=== PATIENT | female | born 1970 | race Caucasian/White ===

== ENCOUNTER 2020-12-02 06:48 | Emergency (ER) | payer MEDICAID ==
[~2020-12-02] VITALS: Ht 160 cm; Wt 82.0 kg
[~2020-12-02 06:48] MED LIST: T3 PO
[2020-12-02] MEDS ORDERED: CEPHALEXIN 250MG CAPSULE PO ONE (07:15)
[2020-12-02] MEDS ORDERED: IBUPROFEN 800MG TABLET PO ONE (07:15)
[2020-12-02] MEDS ORDERED: IBUP-2030 MT (08:57)
[2020-12-02] MEDS ORDERED: TRAM50TA MT (08:57)
[2020-12-02] MEDS ORDERED: CEPH500T MT (08:57)
[2020-12-02 09:20] VITALS: BP 121/78
== END 2020-12-02 09:28 | disposition home or self-care (01) ==
LOC: ER 06:59
DX: L60.0 Ingrowing nail (principal); J45.909 Unspecified asthma, uncomplicated; Z98.890 Other specified postprocedural states
CPT/HCPCS: 73660; 99283

== ENCOUNTER 2020-12-05 05:42 | Emergency (ER) | payer MEDICAID ==
[~2020-12-05] VITALS: Ht 160 cm; Wt 82.0 kg
[~2020-12-05 05:42] MED LIST changes: +CEPH500T MT; +IBUP-2030 MT; +TRAM50TA MT
[2020-12-05] MEDS: BUPIVACAINE HCL/PF 0.5% (5MG/ML) 10ML INFIL ONE (08:56)
[2020-12-05 09:45] VITALS: BP 119/87
== END 2020-12-05 09:46 | disposition home or self-care (01) ==
LOC: ER 05:42
DX: S99.821A Other specified injuries of right foot, initial encounter (principal); X58.XXXA Exposure to other specified factors, initial encounter; Y93.89 Activity, other specified; Y92.89 Other specified places as the place of occurrence of the external cause; Y99.8 Other external cause status
CPT/HCPCS: 99283; J3490; 99282

== ENCOUNTER 2021-08-18 18:46 | Inpatient (IN) | payer MEDICAID ==
[~2021-08-18] VITALS: Ht 160 cm; Wt 85.3 kg
[2021-08-18] MEDS ORDERED: MAGNESIUM/ALUMINUM HYDROXIDE/SIMETHICONE 30ML UDC PO STA (20:20)
[2021-08-18] MEDS ORDERED: FAMOTIDINE 20MG TABLET PO ONE (20:30)
[2021-08-18] MEDS ORDERED: ONDANSETRON HCL 4MG TABLET PO ONE (20:30)
[2021-08-18] MEDS ORDERED: SODIUM CHLORIDE 0.9% 1,000 ML IV ONE (20:45)
[2021-08-18] MEDS ORDERED: KETOROLAC 15MG/ML VIAL IV ONE (20:45)
[2021-08-18] MEDS ORDERED: ONDANSETRON HCL 4MG/2ML INJ IV ONE (20:45)
[2021-08-18 21:07] LABS: HCG SCREEN NEGATIVE
[2021-08-18 21:09] LABS: BASOPHILS % 0.5 % (0.0-2.0); EOSINOPHILS % 6.6 % (0.0-5.0); HEMATOCRIT. 38.3 % (36.0-48.0); HEMOGLOBIN. 12.7 g/dL (12.0-16.0); LYMPHOCYTES % 32.7 % (20.0-50.0); MEAN CORPUSCULAR HEMOGLOBIN 26.2 pg (28.0-32.0); MEAN CORPUSCULAR VOLUME 79.1 fL (81.0-99.0); MEAN PLATELET VOLUME 8.2 fl (7.4-10.4); MONOCYTES % 7.4 % (2.0-8.0); NEUTROPHILS % 52.8 % (40.0-76.0); PLATELET 303 x1000/uL (130-400); RED BLOOD CELL COUNT 4.84 mill/uL (4.2-5.4)
[2021-08-18 21:12] LABS: CHLORIDE 107 mEq/L (98-107)
[2021-08-18 23:40] LABS: CLARITY URINE CLOUDY (CLEAR); COLOR URINE YELLOW (YELLOW); KETONES URINE TRACE (NEGATIVE); LEUKOCYTE ESTERASE URINE 3+ (NEGATIVE); NITRITE URINE POSITIVE (NEGATIVE); OCCULT BLOOD URINE NEGATIVE (NEGATIVE); PH URINE 6.5 (4.5-8.0); PROTEIN URINE TRACE (NEGATIVE); SPECIFIC GRAVITY URINE 1.025 (1.005-1.030)
[2021-08-19] MEDS ORDERED: CEFTRIAXONE 1 G PREMIX 50 ML IV ONE
[2021-08-19 04:00] VITALS: BP 131/69
[2021-08-19] MEDS ORDERED: FENO145T25 PO (04:36)
[2021-08-19] MEDS ORDERED: ONDANSETRON HCL 4MG/2ML INJ IV PRN (05:00)
[2021-08-19] MEDS ORDERED: CEFTRIAXONE 1 G PREMIX 50 ML IV SCH (05:00)
[2021-08-19] MEDS ORDERED: ACETAMINOPHEN 325MG TABLET PO PRN (05:00)
[2021-08-19 05:11] VITALS: BP 131/69
[2021-08-19] MEDS ORDERED: ALBU90AE IH (05:28)
[2021-08-19] MEDS: HYDROCODONE/ACETAMINOPHEN 5/325MG TABLET PO PRN ×4 (05:39→21:31)
[2021-08-19] MEDS: SODIUM CHLORIDE 0.9% 1,000 ML IV SCH ×3 (06:05→21:30)
[2021-08-19 08:00] VITALS: BP 124/88
[2021-08-19] MEDS: ENOXAPARIN 40MG/0.4ML SYR SUBCUT SCH (10:01)
[2021-08-19 12:00] VITALS: BP 137/77
[2021-08-19 16:00] VITALS: BP 120/63
[2021-08-19 20:00] VITALS: BP 121/70
[2021-08-19] MEDS ORDERED: NALOXONE HCL 0.4MG/ML VIAL IV PRN (22:45)
[2021-08-20] VITALS: BP 110/64
[2021-08-20] MEDS: CEFTRIAXONE 1,000 MG in DEXTROSE 5% WATER 50 ML IV SCH (00:43)
[2021-08-20 04:00] VITALS: BP 99/37
[2021-08-20 08:00] VITALS: BP 126/75
[2021-08-20] MEDS: ENOXAPARIN 40MG/0.4ML SYR SUBCUT SCH (08:42)
[2021-08-20 12:00] VITALS: BP 126/98
[2021-08-20] MEDS: HYDROCODONE/ACETAMINOPHEN 5/325MG TABLET PO PRN ×2 (14:40→21:12)
[2021-08-20 16:00] VITALS: BP 132/78
[2021-08-20] MEDS: SODIUM CHLORIDE 0.9% 1,000 ML IV SCH (22:00)
[2021-08-21] VITALS: BP 119/67
[2021-08-21] MEDS: CEFTRIAXONE 1,000 MG in DEXTROSE 5% WATER 50 ML IV SCH (00:11)
[2021-08-21 04:00] VITALS: BP 116/68
[2021-08-21 08:00] VITALS: BP 139/77
[2021-08-21] MEDS: ENOXAPARIN 40MG/0.4ML SYR SUBCUT SCH (08:25)
[2021-08-21] MEDS: SODIUM CHLORIDE 0.9% 1,000 ML IV SCH (10:56)
[2021-08-21 12:00] VITALS: BP 144/80
[2021-08-21 16:00] VITALS: BP 140/80
[2021-08-21 20:00] VITALS: BP 127/70
[2021-08-21] MEDS ORDERED: KETOROLAC 15MG/ML VIAL IV SCH (21:00)
[2021-08-21] MEDS ORDERED: LEVOFLOXACIN 500MG PREMIX 100 ML IV NR (22:30)
[2021-08-22] VITALS: BP 103/77
[2021-08-22] MEDS: KETOROLAC 30MG/ML VIAL IV SCH ×3 (00:03→09:00)
[2021-08-22] MEDS: CEFTRIAXONE 1,000 MG in DEXTROSE 5% WATER 50 ML IV SCH (01:09)
[2021-08-22] MEDS: SODIUM CHLORIDE 0.9% 1,000 ML IV SCH (01:16)
[2021-08-22 04:00] VITALS: BP 107/56
[2021-08-22 06:38] LABS: BASOPHILS % 0.6 % (0.0-2.0); EOSINOPHILS % 6.3 % (0.0-5.0); HEMATOCRIT. 35.8 % (36.0-48.0); HEMOGLOBIN. 11.7 g/dL (12.0-16.0); LYMPHOCYTES % 33.2 % (20.0-50.0); MEAN CORPUSCULAR VOLUME 79.6 fL (81.0-99.0); MEAN PLATELET VOLUME 8.4 fl (7.4-10.4); MONOCYTES % 6.9 % (2.0-8.0); PLATELET 268 x1000/uL (130-400); RED CELL DISTRIBUTION WIDTH 13.7 % (11.6-14.6)
[2021-08-22 08:00] VITALS: BP 129/66
[2021-08-22 09:30] LABS: CHLORIDE 110 mEq/L (98-107)
[2021-08-22] MEDS: ENOXAPARIN 40MG/0.4ML SYR SUBCUT SCH (10:05)
[2021-08-22 10:35] VITALS: BP 129/66
== END 2021-08-22 11:48 | disposition home or self-care (01) | DRG 465 ==
LOC: ER 18:46 → 6EST 23:58 → ENRESERV 08-19 03:16
PROVIDERS: ADMIT Internal Medicine; ATTEND Internal Medicine
DX: N20.2 Calculus of kidney with calculus of ureter (principal); E66.9 Obesity, unspecified; N39.0 Urinary tract infection, site not specified; B96.20 Unspecified Escherichia coli [E. coli] as the cause of diseases classified elsewhere; E78.00 Pure hypercholesterolemia, unspecified; J45.909 Unspecified asthma, uncomplicated; Z68.33 Body mass index [BMI] 33.0-33.9, adult; Z87.442 Personal history of urinary calculi; Z98.891 History of uterine scar from previous surgery; Z71.3 Dietary counseling and surveillance
CPT/HCPCS: 36415; 71045; 74176; 80048; 80053; 81003; 83605; 84484; 84703; 85025; 87186; 93005; 99285; J0696; J1650; J1885; J1956; J2405; J7030; J7060; Q0162

== ENCOUNTER 2022-04-04 12:41 | Emergency (ER) | payer MEDICAID ==
[~2022-04-04] VITALS: Ht 160 cm; Wt 87.0 kg
[~2022-04-04 12:41] MED LIST changes: +ALBU90AE IH; +FENO145T25 PO
[2022-04-04] MEDS ORDERED: SODIUM CHLORIDE 0.9% 1,000 ML IV ONE ×2 (13:15→14:00)
[2022-04-04] MEDS ORDERED: ASPIRIN 81MG TABLET PO ONE (14:00)
[2022-04-04 14:16] LABS: BASOPHILS % 0.5 % (0.0-2.0); EOSINOPHILS % 3.5 % (0.0-5.0); HEMATOCRIT. 37.9 % (36.0-48.0); HEMOGLOBIN. 12.5 g/dL (12.0-16.0); LYMPHOCYTES % 31.1 % (20.0-50.0); MEAN CORPUSCULAR HEMOGLOBIN 25.7 pg (28.0-32.0); MEAN CORPUSCULAR VOLUME 77.6 fL (81.0-99.0); MEAN PLATELET VOLUME 8.4 fl (7.4-10.4); NEUTROPHILS % 58.9 % (40.0-76.0); PLATELET 274 x1000/uL (130-400); RED BLOOD CELL COUNT 4.88 mill/uL (4.2-5.4); RED CELL DISTRIBUTION WIDTH 13.7 % (11.6-14.6)
[2022-04-04 14:19] LABS: CHLORIDE 105 mEq/L (98-107)
[2022-04-04 14:29] LABS: HCG SCREEN NEGATIVE
[2022-04-04 15:37] LABS: CLARITY URINE CLEAR (CLEAR); COLOR URINE YELLOW (YELLOW); KETONES URINE TRACE (NEGATIVE); LEUKOCYTE ESTERASE URINE 1+ (NEGATIVE); NITRITE URINE NEGATIVE (NEGATIVE); OCCULT BLOOD URINE NEGATIVE (NEGATIVE); PH URINE 5.5 (4.5-8.0); PROTEIN URINE NEGATIVE (NEGATIVE); SPECIFIC GRAVITY URINE 1.026 (1.005-1.030)
[2022-04-04 17:44] VITALS: BP 131/76
== END 2022-04-04 17:51 | disposition home or self-care (01) ==
LOC: ER 12:41
DX: R55 Syncope and collapse (principal); R42 Dizziness and giddiness; J45.909 Unspecified asthma, uncomplicated; Z98.890 Other specified postprocedural states; Z79.899 Other long term (current) drug therapy
CPT/HCPCS: 36415; 70450; 71045; 80053; 81003; 81025; 82962; 84484; 84703; 85025; 85379; 93005; 96360; 96361; 99285; J7030; Z7610

== ENCOUNTER 2022-12-16 06:51 | Emergency (ER) | payer MEDICAID ==
[~2022-12-16] VITALS: Ht 160 cm; Wt 83.0 kg
[2022-12-16 07:06] VITALS: O2SAT 100
[2022-12-16] MEDS ORDERED: ONDANSETRON HCL 4MG/2ML INJ IV STA (07:56)
[2022-12-16] MEDS ORDERED: SODIUM CHLORIDE 0.9% 1,000 ML IV ONE (08:00)
[2022-12-16] MEDS ORDERED: DIPHENHYDRAMINE 50MG/ML VIAL IV ONE (08:00)
[2022-12-16 08:31] LABS: CLARITY URINE CLOUDY (CLEAR); COLOR URINE YELLOW (YELLOW); GLUCOSE URINE NEGATIVE (NEGATIVE); KETONES URINE NEGATIVE (NEGATIVE); LEUKOCYTE ESTERASE URINE 2+ (NEGATIVE); NITRITE URINE NEGATIVE (NEGATIVE); OCCULT BLOOD URINE NEGATIVE (NEGATIVE); PH URINE 5.5 (4.5-8.0); PROTEIN URINE NEGATIVE (NEGATIVE); SPECIFIC GRAVITY URINE 1.018 (1.005-1.030); UROBILINOGEN URINE 0.2 E.U./dL (0.2-1.0)
[2022-12-16 09:00] LABS: BACTERIA URINE 1+; SQUAMOUS EPITHELIAL CELL URINE 1+ /lpf (RARE/1+)
[2022-12-16 09:01] LABS: YEAST URINE NONE SEEN
[2022-12-16 09:05] LABS: BASOPHILS % 0.5 % (0.0-2.0); DIFFERENTIAL COMMENT 0; EOSINOPHILS % 2.4 % (0.0-5.0); HEMOGLOBIN. 12.3 g/dL (12.0-16.0); LYMPHOCYTES % 26.7 % (20.0-50.0); MEAN CORPUSCULAR HEMOGLOBIN 25.6 pg (28.0-32.0); MEAN CORPUSCULAR HGB CONC 33.2 g/dL (31.0-37.0); MEAN CORPUSCULAR VOLUME 77.2 fL (81.0-99.0); MEAN PLATELET VOLUME 8.7 fl (7.4-10.4); MONOCYTES % 5.7 % (2.0-8.0); NEUTROPHILS % 64.7 % (40.0-76.0); PLATELET 272 x1000/uL (130-400); RED BLOOD CELL COUNT 4.79 mill/uL (4.2-5.4); RED CELL DISTRIBUTION WIDTH 13.9 % (11.6-14.6)
[2022-12-16 09:14] LABS: PARTIAL THROMBOPLASTIN TIME 23.6 sec (23.4-31.0); PROTHROMBIN TIME 10.4 sec (9.6-11.0)
[2022-12-16 09:18] LABS: CHLORIDE 109 mEq/L (98-107); INDEX HEMOLYSI 1 (1-3); INDEX ICTERIC 1 (1-4); INDEX LIPEMIC 1 (1-3); POTASSIUM 3.8 mEq/L (3.5-5.1); SODIUM 140 mEq/L (136-145)
[2022-12-16 09:29] LABS: ALANINE AMINOTRANSFERASE 39 IU/L (13-61); ASPARTATE AMINOTRANSFERASE 19 IU/L (15-37); BILIRUBIN TOTAL 0.5 mg/dL (0.1-1.0); CALCIUM 9.1 mg/dL (8.5-10.1); CARBON DIOXIDE 27 mEq/L (21-32); CREATININE 0.6 mg/dL (0.6-1.3); GLUCOSE 141 mg/dL (70-105); PROTEIN TOTAL 7.9 g/dL (6.0-8.3); TROPONIN I HIGH SENSITIVITY 6 ng/L (<54); UREA NITROGEN BLOOD 18 mg/dL (7-21)
[2022-12-16] MEDS ORDERED: MECL-299 MT (10:47)
[2022-12-16] MEDS ORDERED: NITR-87 MT (10:47)
[2022-12-16 11:02] VITALS: BP 122/73; PULSE 75; RESP 18; TEMP 98.4
[2022-12-16 11:34] LABS: HCG SCREEN NEGATIVE
== END 2022-12-16 11:04 | disposition home or self-care (01) ==
LOC: ER 06:51
DX: N39.0 Urinary tract infection, site not specified (principal); R42 Dizziness and giddiness; E78.00 Pure hypercholesterolemia, unspecified; J45.909 Unspecified asthma, uncomplicated; E11.9 Type 2 diabetes mellitus without complications
CPT/HCPCS: 80053; 81003; 84703; 85025; 85610; 85730; 84484; 36415; 71045; 70450; 93005; 96361; 96374; 96375; 99285; J1200; J2405; J7030; Z7610

== ENCOUNTER 2023-11-21 00:02 | Emergency (ER) | payer MEDICAID ==
[~2023-11-21] VITALS: Ht 160 cm; Wt 84.0 kg
[~2023-11-21 00:02] MED LIST changes: +MECL-299 MT; +NITR-87 MT
[2023-11-21 00:26] VITALS: O2SAT 99
[2023-11-21 00:43] VITALS: TEMP 98; O2SAT 97
[2023-11-21] MEDS ORDERED: KETOROLAC 30MG/ML VIAL IV STA (01:12)
[2023-11-21] MEDS ORDERED: ONDANSETRON HCL 4MG/2ML INJ IV STA (01:12)
[2023-11-21] MEDS ORDERED: MAGNESIUM/ALUMINUM HYDROXIDE/SIMETHICONE 30ML UDC PO STA (01:12)
[2023-11-21] MEDS ORDERED: FAMOTIDINE 20MG/2ML VIAL IV ONE (01:15)
[2023-11-21 01:31] LABS: BASOPHILS % 0.5 % (0.0-2.0); DIFFERENTIAL COMMENT 0; EOSINOPHILS % 3.1 % (0.0-5.0); HEMATOCRIT. 37.2 % (36.0-48.0); HEMOGLOBIN. 12.4 g/dL (12.0-16.0); LYMPHOCYTES % 20.9 % (20.0-50.0); MEAN CORPUSCULAR HEMOGLOBIN 26.1 pg (28.0-32.0); MEAN CORPUSCULAR HGB CONC 33.3 g/dL (31.0-37.0); MEAN CORPUSCULAR VOLUME 78.2 fL (81.0-99.0); MEAN PLATELET VOLUME 8.5 fl (7.4-10.4); MONOCYTES % 7.2 % (2.0-8.0); NEUTROPHILS % 68.3 % (40.0-76.0); PLATELET 258 x1000/uL (130-400); RED BLOOD CELL COUNT 4.75 mill/uL (4.2-5.4); RED CELL DISTRIBUTION WIDTH 14.2 % (11.6-14.6); WHITE BLOOD COUNT 10.3 x1000/uL (4.5-11.0)
[2023-11-21 01:35] LABS: CHLORIDE 107 mEq/L (98-107); POTASSIUM 3.6 mEq/L (3.5-5.1); SODIUM 141 mEq/L (136-145)
[2023-11-21 01:36] LABS: CALCIUM 9.8 mg/dL (8.7-10.4); CARBON DIOXIDE 26 mEq/L (21-32)
[2023-11-21 01:41] LABS: CREATININE 0.8 mg/dL (0.6-1.0); GLUCOSE 127 mg/dL (70-105); UREA NITROGEN BLOOD 15 mg/dL (9-23)
[2023-11-21 01:43] LABS: ALANINE AMINOTRANSFERASE 27 IU/L (10-49); ALBUMIN 4.6 g/dL (3.2-4.8); ASPARTATE AMINOTRANSFERASE 23 IU/L (<34)
[2023-11-21 01:44] LABS: BILIRUBIN TOTAL 0.5 mg/dL (0.1-1.0); PROTEIN TOTAL 7.5 g/dL (6.0-8.3)
[2023-11-21] MEDS: MAGNESIUM/ALUMINUM HYDROXIDE/SIMETHICONE 30ML UDC PO NR (02:00)
[2023-11-21 02:38] LABS: CLARITY URINE TURBID (CLEAR); COLOR URINE YELLOW (YELLOW); GLUCOSE URINE NEGATIVE (NEGATIVE); KETONES URINE NEGATIVE (NEGATIVE); LEUKOCYTE ESTERASE URINE 3+ (NEGATIVE); NITRITE URINE NEGATIVE (NEGATIVE); OCCULT BLOOD URINE NEGATIVE (NEGATIVE); PROTEIN URINE NEGATIVE (NEGATIVE); UROBILINOGEN URINE 0.2 E.U./dL (0.2-1.0)
[2023-11-21 03:28] LABS: RBC URINE NONE SEEN /hpf (0-2); SQUAMOUS EPITHELIAL CELL URINE 1+ /lpf (RARE/1+)
[2023-11-21 03:29] LABS: AMORPHOUS SEDIMENT URINE 3+ /lpf; BACTERIA URINE 2+
[2023-11-21 04:33] VITALS: BP 156/59; PULSE 76; RESP 16
[2023-11-21] MEDS: ONDANSETRON HCL 4MG/2ML INJ IV NR (04:33)
[2023-11-21] MEDS: KETOROLAC 30MG/ML VIAL IV NR (04:33)
[2023-11-21] MEDS: SODIUM CHLORIDE 0.9% 1,000 ML IV ONE (04:33)
[2023-11-21] MEDS: FAMOTIDINE 20MG/2ML VIAL IV NR (04:33)
[2023-11-21] MEDS ORDERED: ACET-2708 MT (04:35)
[2023-11-21] MEDS ORDERED: MAG355OR21 MT (04:35)
[2023-11-21] MEDS ORDERED: ONDA4TAB50 MT (04:35)
== END 2023-11-21 05:04 | disposition home or self-care (01) ==
LOC: ER 00:02
DX: R10.13 Epigastric pain (principal); R11.2 Nausea with vomiting, unspecified; R19.7 Diarrhea, unspecified; J45.909 Unspecified asthma, uncomplicated; E11.9 Type 2 diabetes mellitus without complications; E78.00 Pure hypercholesterolemia, unspecified; Z98.890 Other specified postprocedural states; Z79.899 Other long term (current) drug therapy
CPT/HCPCS: 80053; 81003; 83690; 85025; 36415; 71045; 76700; 96374; 96375; 99285; J3490; J1885; J2405; J7030; Z7610

== ENCOUNTER 2025-02-22 08:06 | Emergency (ER) | payer MEDICAID ==
[~2025-02-22] VITALS: Ht 165.1 cm; Wt 84.0 kg
[~2025-02-22 08:06] MED LIST changes: +ACET-2708 MT; +MAG355OR21 MT; +ONDA4TAB50 MT
[2025-02-22 08:14] VITALS: O2SAT 97
[2025-02-22] MEDS ORDERED: DIPHENHYDRAMINE 50MG CAPSULE PO ONE (10:45)
[2025-02-22] MEDS: FAMOTIDINE 20MG TABLET PO SCH (10:49)
[2025-02-22] MEDS: PREDNISONE 20MG TABLET PO ONE (10:49)
[2025-02-22] MEDS: DIPHENHYDRAMINE 25MG CAPSULE PO SCH (10:49)
[2025-02-22] MEDS ORDERED: FAMO40TA70 MT (11:30)
[2025-02-22] MEDS ORDERED: CLIN-194 MT (11:30)
[2025-02-22] MEDS ORDERED: DIPH25CA83 MT (11:30)
[2025-02-22 12:04] VITALS: BP 165/99; PULSE 75; RESP 18; TEMP 36.8; O2SAT 99
== END 2025-02-22 12:07 | disposition home or self-care (01) ==
LOC: ER 08:06
DX: L03.811 Cellulitis of head [any part, except face] (principal); T37.0X5A Adverse effect of sulfonamides, initial encounter; J45.909 Unspecified asthma, uncomplicated; E78.00 Pure hypercholesterolemia, unspecified; X58.XXXA Exposure to other specified factors, initial encounter
CPT/HCPCS: 99284; Q0163; J7512